=== PATIENT | male | born 2000 | race Caucasian/White ===

== ENCOUNTER 2023-04-15 09:23 | Emergency (ER) | payer OTHER, SELFPAY ==
[2023-04-15 09:26] VITALS: BP 144/98; PULSE 78; RESP 18; TEMP 36.5; O2SAT 99; BMI 43.4
--- NOTE | 2023-04-15 09:31 | XR_ITS ---
[address] [address] Patient Name: ISABEL AHUMADA MRN: [id number] date: 2000 Sex: M Assigned Patient Location: ED.MAIN Current Patient Location: Accession/Order Number: [id number] Exam Date: 04/15/2023 09:32 Report Date: 04/15/2023 10:30 At the request of: REJI QUINTANA Procedure: XR knee RT 4V RIGHT KNEE X-RAYS, 04/15/2023. HISTORY: Knee pain. COMPARISON: None. FINDINGS: 4 views obtained. Bone mineralization normal. Alignment normal. Joint spaces are normal in width. No joint effusion. No fracture. No dislocation. No significant degenerative changes. IMPRESSION: Normal right knee x-rays. Electronically authenticated by: JONI FRANCOIS Date: 04/15/2023 10:30
--- NOTE | 2023-04-15 09:54 | ED.LOWEXI1 ---
HPI - Extremity Injury (Lower) General Chief Complaint: Extremity Injury, Lower Stated Complaint: LOWER EXTREMITY INJURY RIGHT KNEE Time Seen by Provider: 04/15/23 09:54 Mode of arrival: walk-in Limitations: no limitations History of Present Illness HPI Narrative: e. Several days ago while at work he was stepping up and putting some pressure on that knee joint and he felt kind of pop and buckle. He had this burning sensation at that time. he did not notice any obvious deformity to the knee. He's been overactive the last two days on it although he has put some ice on it. He's never had a problem with his knee previously. The inferior right portion of the knee on the lateral aspect is where he is uncomfortable. Does not have any pain on the medial joint. There is no tingling or numbness. It feels just slightly unstable when he is walking on it. He has no other complaints. This problem focused examination Related Data Allergies Allergy/AdvReac Type Severity Reaction Status Date / Time No Known Drug Allergies Allergy Verified 04/15/23 09:29 Exam Constitutional Vital Signs - 24 hr 04/15/23 09:26 Temperature 97.7 F Pulse Rate [Monitor] 78 Respiratory Rate 18 Blood Pressure [Left Arm] 144/98 H Pulse Oximetry 99 Oxygen Delivery Method Room Air Extremity Other: of the right knee is slighhtly tender to palpation inferior and lateral of the joint. The patella and quadriceps tendon were checked and are intact. Patella is not ballotable. There is no pain or discomfort with valgus or medial stress, anterior and posterior drawer sign are negative. However and appropriate position when we flex the knee and apply in-line pressure to the knee he has a lot of discomfort. Neurovascular examination is normal. Course Vital Signs Vital signs: Vital Signs Temperature 97.7 F 04/15/23 09:26 Pulse Rate 78 04/15/23 09:26 Respiratory Rate 18 04/15/23 09:26 Blood Pressure 144/98 H 04/15/23 09:26 Pulse Oximetry 99 04/15/23 09:26 Oxygen Delivery Method Room Air 04/15/23 09:26 Temperature 97.7 F 04/15/23 09:26 Pulse Rate 78 04/15/23 09:26 Respiratory Rate 18 04/15/23 09:26 Blood Pressure 144/98 H 04/15/23 09:26 Pulse Oximetry 99 04/15/23 09:26 Oxygen Delivery Method Room Air 04/15/23 09:26 MDM - Extremity Injury (Lower) MDM Narrative Medical decision making narrative: nursing staff ordered x-rays and they appear to be normal per the radiologist. We will place him in a brace and have him follow-up with a local orthopedist. I believe he might have cartilaginous injury to his knee. There is not much effusion at this time. This document has been composed with a new electronic medical record and [employer] voice recognition system. This document may not fully inaccurately reflect the entirety of the patient encounter. Discharge Plan Discharge Chief Complaint: Extremity Injury, Lower Clinical Impression: Right knee sprain Time of Disposition Decision: 10:05 Instructions: Knee Sprain (ED) Stand Alone Forms: Portal Instructions Referrals: Shy Hallman MD [Primary Care Provider] - 1 week
== END 2023-04-15 10:17 | disposition home or self-care (01) ==
PROVIDERS: Emergency Provider Emergency Medicine Emergency Medical Services; Family Provider Family Medicine; PCP Family Medicine
DX: S83.91XA Sprain of unspecified site of right knee, initial encounter (principal); X50.9XXA Other and unspecified overexertion or strenuous movements or postures, initial encounter
CPT/HCPCS: 73564; 99283

== ENCOUNTER 2023-05-14 15:20 | Outpatient (OUT) | payer OTHER, SELFPAY ==
--- NOTE | 2023-05-14 | XR_ITS ---
[address] [address] Patient Name: ISABEL AHUMADA MRN: [id number] date: 2000 Sex: M Assigned Patient Location: MRI Current Patient Location: MRI Accession/Order Number: [id number] Exam Date: 05/14/2023 15:40 Report Date: 05/14/2023 16:00 At the request of: JAMES DOAN Procedure: XR foreign body eye EXAMINATION: XR foreign body eye HISTORY: for foreign body COMPARISON: No relevant comparison available. FINDINGS: ORBITS: Negative for a metallic foreign body. OTHER: Negative. XR/XR foreign body eye IMPRESSION: No metallic foreign body in the orbits Electronically authenticated by: SEGUNDO AGUILAR Date: 05/14/2023 16:00
--- NOTE | 2023-05-14 15:28 | MR_ITS ---
[address] [address] Patient Name: ISABEL AHUMADA MRN: [id number] date: 2000 Sex: M Assigned Patient Location: MRI Current Patient Location: MRI Accession/Order Number: [id number] Exam Date: 05/14/2023 15:33 Report Date: 05/14/2023 18:46 At the request of: JAMES DOAN Procedure: MR knee RT wo con EXAMINATION: MR knee RT wo con HISTORY: Right knee sprain COMPARISON: No relevant comparison available. TECHNIQUE: A complete multi-planar MRI was performed. FINDINGS: MEDIAL COMPARTMENT MEDIAL MENISCUS: No visible tear or significant degeneration. CARTILAGE: No visible defect. BONES: No marrow pathology, fracture, or significant arthropathy. MCL AND MEDIAL CAPSULE: Normal medial collateral ligament and medial capsule. LATERAL COMPARTMENT LATERAL MENISCUS: No visible tear or significant degeneration. CARTILAGE: No visible defect. BONES: No marrow pathology, fracture, or significant arthropathy. LCL/POSTEROLAT COMPLEX: Normal lateral collateral ligament, fascicles, lateral capsule and ligaments. ANTERIOR COMPARTMENT PATELLA: No marrow pathology, fracture, or significant arthropathy. CARTILAGE: No visible defect. TENDONS: Normal. EFFUSION: Large joint effusion. ACL: Avulsion of the ligament from the proximal femur. PCL: Normal appearing ligament. MENISCOFEMORAL: Normal meniscofemoral ligaments. OTHER: Negative. MR/MR knee RT wo con IMPRESSION: Complete tear of the anterior cruciate ligament Large joint effusion Electronically authenticated by: SEGUNDO AGUILAR Date: 05/14/2023 18:46
== END 2023-05-14 15:21 | disposition home or self-care (01) ==
LOC: MRI 15:22
PROVIDERS: Family Provider Family Medicine; PCP Family Medicine; Visit Provider Nurse Practitioner Family
DX: S83.91XA Sprain of unspecified site of right knee, initial encounter (principal); S83.511A Sprain of anterior cruciate ligament of right knee, initial encounter
CPT/HCPCS: 70030; 73721

== ENCOUNTER 2023-11-27 16:21 | Outpatient (RCR) | payer OTHER, SELFPAY | END 2023-12-07 13:06 | disposition home or self-care (01) | LOC: PT 16:21 | PROVIDERS: Family Provider Family Medicine; PCP Family Medicine; Visit Provider Nurse Practitioner Family | DX: S83.511D Sprain of anterior cruciate ligament of right knee, subsequent encounter (principal); S83.91XD Sprain of unspecified site of right knee, subsequent encounter | CPT/HCPCS: 97110; 97161 ==